=== PATIENT | female | born 1935 | race Caucasian/White ===

== ENCOUNTER 2020-08-22 00:12 | Inpatient (IN) | payer MEDICARE, OTHER ==
[~2020-08-22] VITALS: Ht 167.6 cm; Wt 57.7 kg
[2020-08-22] MEDS ORDERED: FUROSEMIDE40 MG PO (03:10)
[2020-08-22] MEDS ORDERED: BREO ELLIPTA 11 EACH INH (03:11)
[2020-08-22] MEDS ORDERED: FERROCITE324 MG PO (03:11)
[2020-08-22] MEDS ORDERED: LOSARTAN POTAS100 MG PO (03:12)
[2020-08-22] MEDS ORDERED: CARTIA XT180 MG PO (03:12)
[2020-08-22] MEDS ORDERED: LOW DOSE ASPIRI81 MG PO (03:13)
[2020-08-22] MEDS ORDERED: SIMVASTATIN10 MG PO (03:14)
[2020-08-22] MEDS ORDERED: NITROGLYCERIN0.4 MG SL (03:14)
[2020-08-22] MEDS ORDERED: ALENDRONATE SOD35 MG PO (03:15)
[2020-08-22] MEDS ORDERED: COREG 25MG TAB25 MG PO (03:15)
[2020-08-22] MEDS ORDERED: OMEPRAZOLE40 MG PO (03:16)
[2020-08-22] MEDS ORDERED: HYDROXYCHLOROQ200 MG PO (03:17)
[2020-08-22] MEDS ORDERED: ANORO ELLIPTA1 EACH INH (03:18)
[2020-08-22] MEDS ORDERED: PROVENTIL HFA6.7 GM INH (03:19)
[2020-08-23 02:44] LABS: HEMOGLOBIN 11.6 gm/dl (12.3-15.3); RED BLOOD COUNT 3.79 M/UL (4.00-5.10); WHITE BLOOD COUNT 6.7 K/UL (4.5-11.0)
[2020-08-23 03:01] LABS: BUN/CREATININE RATIO 19 (0-10)
[2020-08-24 07:51] LABS: HEMOGLOBIN 10.6 gm/dl (12.3-15.3); RED BLOOD COUNT 3.58 M/UL (4.00-5.10)
[2020-08-24 07:52] LABS: WHITE BLOOD COUNT 9.1 K/UL (4.5-11.0)
[2020-08-25 04:28] LABS: WHITE BLOOD COUNT 8.2 K/UL (4.5-11.0)
[2020-08-25 04:38] LABS: RED BLOOD COUNT 3.95 M/UL (4.00-5.10)
[2020-08-25 04:58] LABS: BUN/CREATININE RATIO 30 (0-10)
[2020-08-26 04:44] LABS: HEMOGLOBIN 12.7 gm/dl (12.3-15.3); RED BLOOD COUNT 4.18 M/UL (4.00-5.10); WHITE BLOOD COUNT 7.7 K/UL (4.5-11.0)
[2020-08-27 07:09] LABS: HEMOGLOBIN 12.1 gm/dl (12.3-15.3); WHITE BLOOD COUNT 8.6 K/UL (4.5-11.0)
[2020-08-28 03:11] LABS: HEMOGLOBIN 12.4 gm/dl (12.3-15.3); RED BLOOD COUNT 4.12 M/UL (4.00-5.10); WHITE BLOOD COUNT 9.2 K/UL (4.5-11.0)
[2020-08-28 12:22] LABS: BUN/CREATININE RATIO 39 (0-10)
[2020-08-29 03:09] LABS: HEMOGLOBIN 12.8 gm/dl (12.3-15.3); RED BLOOD COUNT 4.25 M/UL (4.00-5.10); WHITE BLOOD COUNT 11.5 K/UL (4.5-11.0)
[2020-08-30 06:21] LABS: HEMOGLOBIN 12.5 gm/dl (12.3-15.3); RED BLOOD COUNT 4.13 M/UL (4.00-5.10); WHITE BLOOD COUNT 12.1 K/UL (4.5-11.0)
[2020-08-30] MEDS ORDERED: DOXYCYCLINE HY100 M2 PO (13:34)
[2020-08-30] MEDS ORDERED: POTASSIUM CHLO20 ME2 PO (13:39)
[2020-08-30] MEDS ORDERED: FUROSEMIDE40 MG PO (13:39)
== END 2020-08-30 18:17 | disposition home health service (06) | DRG 291 ==
LOC: PROG CARE 02:10 → MED SURG 4 02:10
PROVIDERS: Internal Medicine; Internal Medicine Nephrology; ADMIT Internal Medicine
PROC: B24BZZZ Ultrasonography of Heart with Aorta (ICD-10-PCS; principal; 2020-08-22)
DX: I11.0 Hypertensive heart disease with heart failure (principal); J18.9 Pneumonia, unspecified organism; J96.21 Acute and chronic respiratory failure with hypoxia; J44.0 Chronic obstructive pulmonary disease with (acute) lower respiratory infection; J44.1 Chronic obstructive pulmonary disease with (acute) exacerbation; E87.1 Hypo-osmolality and hyponatremia; M32.9 Systemic lupus erythematosus, unspecified; Z20.822 Contact with and (suspected) exposure to COVID-19; F03.90 Unspecified dementia, unspecified severity, without behavioral disturbance, psychotic disturbance, mood disturbance, and anxiety; I50.33 Acute on chronic diastolic (congestive) heart failure; Z99.81 Dependence on supplemental oxygen; R53.81 Other malaise; E78.5 Hyperlipidemia, unspecified; Z90.710 Acquired absence of both cervix and uterus; Z82.49 Family history of ischemic heart disease and other diseases of the circulatory system; Z87.891 Personal history of nicotine dependence; Z79.82 Long term (current) use of aspirin; Z79.899 Other long term (current) drug therapy
CPT/HCPCS: ECHO; 36415; 36600; 71046; 80048; 80053; 82533; 82550; 82553; 82803; 83735; 83880; 84439; 84443; 84484; 85025; 85027; 86140; 93005; 93306; 94640; 94660; 94664; 94760; 97110; 97110-GP-CQ; 97116-GP-CQ; 97163; 97166; 97530; 97530-GP-CQ; 97535; J1335; J1650; J1940; J2920; J3475; U0002